=== PATIENT | male | born 1950 | race Asian ===

== ENCOUNTER 2025-06-13 08:56 | Outpatient (CLI) | payer MEDICARE, MEDICAID ==
[~2025-06-13 08:56] MED LIST: ALLO100T PO; CALC0.2511 PO; FERR325T28 PO; FURO-149 PO; HYDR25TA90 PO; LABE100T8 PO; LEVO50TA66 PO; SIMV-45 PO; SODI650T29 PO
--- NOTE | 2025-06-13 10:53 | VASCULAR REPORT ---
Carotid Duplex Date: 06/13/2025 09:16 AM Clinical History: Dizziness Comparison: None Technique: Indications Dizziness Risk Factors Hypertension: Doppler Spectral Velocity Analysis Right Left pCCA 74/15 cm/s pCCA 104/17 cm/s dCCA 84/13 cm/s dCCA 93/11 cm/s ECA 141/ cm/s ECA 165/ cm/s pICA 111/24 cm/s pICA 73/18 cm/s Peewee 124/22 cm/s P[place]wee 62/21 cm/s dICA 67/16 cm/s dICA 70/17 cm/s Vert 59/16 cm/s Vert. 72/19 cm/s Subcl. 158/ cm/s Subcl. 198/ cm/s ICA/CCA 1.48 ICA/CCA 0.78 Real-Time B-Mode Imaging Area Findings Right Left CCA Plaque Composition Heterogeneous Heterogeneous Plaque Description Irregular Smooth BIF Plaque Composition Heterogeneous with calcification Heterogeneous Plaque Description Irregular Irregular ICA Plaque Composition Heterogeneous Heterogeneous Plaque Description Irregular Irregular ECA Plaque Composition Heterogeneous Heterogeneous Plaque Description Irregular Irregular Vertebral Antegrade Antegrade Subclavian Multiphasic Multiphasic CONCLUSION Mild heterogeneous irregular plaque visualized at the carotid artery bifurcation extending into the proximal internal carotid arteries bilaterally, right greater than left. However, no hemodynamically significant stenosis or occlusion visualized in the carotid arteries bilaterally. Less than 50% stenosis visualized in the internal carotid arteries bilaterally. Less than 50% stenosis visualized in the external and common carotid arteries bilaterally.
--- NOTE | 2025-06-13 12:24 | RADIOLOGY REPORT ---
PROCEDURE: MR MRI HEAD INDICATION: DIZZINESS AND GIDDINESS EXAM DATE: 06/13/2025 10:26 AM COMPARISON: None TECHNIQUE: MRI of the brain without intravenous contrast. FINDINGS: Diffusion weighted images of the brain demonstrate no evidence of acute infarction. There is no evidence of acute intracranial hemorrhage, extra-axial collection, mass effect, midline shift, herniation or hydrocephalus. The ventricles, sulci and cisterns appear age appropriate. The signal intensities of the brain parenchyma are within normal limits. Scattered foci of increased T2/FLAIR signal in the subcortical, deep, and periventricular white matter both cerebral hemispheres compatible with moderate chronic small vessel ischemia. The major vascular flow voids are present. The visualized paranasal sinuses and mastoid air cells are clear. The surrounding soft tissues and osseous structures are unremarkable. IMPRESSION: No evidence of acute infarction, intracranial hemorrhage, mass effect or hydrocephalus.
== END 2025-06-13 23:59 | disposition home or self-care (01) ==
LOC: VAS 08:56
PROVIDERS: ATTEND Family Medicine
DX: I65.23 Occlusion and stenosis of bilateral carotid arteries (principal); R42 Dizziness and giddiness
CPT/HCPCS: 70551; 93880; 93971